=== PATIENT | male | born 1990 | race Caucasian/White ===

== ENCOUNTER 2021-03-03 11:14 | Emergency (ER) | payer SELFPAY ==
[~2021-03-03] VITALS: Ht 170.2 cm; Wt 70.8 kg
== END 2021-03-03 13:50 | disposition home or self-care (01) ==
LOC: ER1 11:14
DX: U07.1 COVID-19 (principal); E11.9 Type 2 diabetes mellitus without complications; E78.5 Hyperlipidemia, unspecified; F17.220 Nicotine dependence, chewing tobacco, uncomplicated
CPT/HCPCS: 99283; M0243